=== PATIENT | female | born 1960 | race Caucasian/White ===

== ENCOUNTER 2017-10-09 18:08 | Emergency (ER) | payer BC ==
--- NOTE | 2017-10-09 18:32 | EDM.PDOC ---
ED HPI GENERAL MEDICAL PROBLEM - General Chief Complaint: General Stated Complaint: R ankle pain Time Seen by Provider: 10/09/17 18:25 Source of Information: Reports: Patient, Family (), Old Records ([facility] chart/EMR) History Limitations: Reports: No Limitations - History of Present Illness INITIAL COMMENTS - FREE TEXT/NARRATIVE: The patient was brought to the emergency room via private automobile by her for evaluation of 8/10 right ankle pain which occurred secondary to slipping on the ice at her home at about 17:30 hours. She did have a distal right ankle sprain as a teenager but no other significant previous right ankle injury. No treatment or medications prior to arrival with patient having difficulty with weightbearing. She denies any history of head injury, neck/back pain, loss of consciousness, change in mental status, paresthesias, neurological deficits, or other complaints or injuries. The patient denies any chest pain/pressure, heart flutter, dizziness, orthostasis, orthopnea, diaphoresis, paresthesias, recent decreased exercise tolerance, or any other anginal-type symptoms. No recent history of abdominal pain, heartburn, nausea, diarrhea, melena, gross hematochezia, or any food intolerance, including fatty foods, etc.. The patient also denies any recent fever, cough, wheezing, dyspnea , etc.. Onset: Today, Sudden Onset Date: 10/09/17 Onset Time: 17:30 Duration: Constant Location: Reports: Lower Extremity, Right. Denies: Head, Face, Neck, Chest, Abdomen, Back, Pelvis, Upper Extremity, Left, Upper Extremity, Right, Lower Extremity, Left, Radiates to Quality: Reports: Same as Previous Episode, Sharp, Throbbing Severity: Moderate Improves with: Reports: Rest Worsens with: Reports: Movement Context: Reports: Trauma (As above) Associated Symptoms: Denies: Confusion, Chest Pain, Cough, Diaphoresis, Fever/ Chills, Headaches, Loss of Appetite, Malaise, Nausea/Vomiting, Seizure, Shortness of Breath, Syncope, Weakness Treatments WARD SECRETARY: Reports: Other (see below) (None) Right Feet Pain Score (Numeric/FACES): 8 - Related Data Allergies Allergy/AdvReac Type Severity Reaction Status Date / Time tramadol Allergy Hives Verified 11/03/15 18:11 Home Meds: Home Meds Cholecalciferol (Vitamin D3) [Vitamin D3] 2,000 unit PO DAILY 10/22/13 [History] Melatonin 5 mg PO BEDTIME PRN 10/22/13 [History] Multivitamin [Multi-Vitamin Daily] 1 each PO DAILY 10/22/13 [History] Calcium Carbonate [Calcium] 600 mg PO DAILY 10/24/13 [History] Omeprazole [Prilosec] 40 mg PO DAILY 02/18/14 [History] Fish Oil/[place]-3 Fatty Acids [Fish Oil] 1 each PO DAILY 05/24/15 [History] Docusate Sodium/Sennosides [Senna Plus] 1 tab PO BID PRN 11/03/15 [History] Past Medical History HEENT History: Reports: Hard of Hearing, Impaired Vision, Other (See Below). Denies: Allergic Rhinitis, Cataract, Glaucoma, Macular Degeneration, Retinal Detachment Other HEENT History: She wears glasses. Chronic bilateral tinnitus with possible hearing loss. Nasal fracture as below Cardiovascular History: Reports: Arrhythmia, Cardiomyopathy, Heart Failure, Other (See Below). Denies: Afib, Aneurysm, Blood Clots/VTE/DVT, CAD, Heart Murmur, High Cholesterol, Hypertension, MA, PVD, Syncope Other Cardiovascular History: History of moderate bradycardia and borderline incomplete right bundle branch block. Mild cardiomegaly by chest x-ray with echocardiogram showing no significant cardiac enlargement, although the grade 1 diastolic dysfunction. Respiratory History: Reports: COPD, Intubation, Previous, Pulmonary Fibrosis, Sleep Apnea, Other (See Below). Denies: Asthma, Bronchitis, Recurrent, Intubation, Difficult, PE, Pneumonia, Recurrent, Pneumothorax, TB Other Respiratory History: Sleep apnea with current CPAP use. COPD and pulmonary fibrosis by chest x-ray with no current medical therapy required Gastrointestinal History: Reports: Cholelithiasis, Chronic Constipation, Gastritis, GERD, Helicobacter Pylori, Other (See Below). Denies: Celiac Disease , Chronic Diarrhea, Fecal Incontinence, GI Bleed, Hepatitis, Inflammatory Bowel Disease, Irritable Bowel Syndrome, Jaundice, Pancreatitis, PUD Other Gastrointestinal History: Positive H pylori titer on 02/18/14. Diverticulosis of the sigmoid colon. Hyperplastic rectal colonic polyp with additional adenomatous polyp with severe focal dysplasia at 12 cm on 09/13/07 with no history of recurrence despite multiple follow-up colonoscopy Genitourinary History: Reports: Urinary Incontinence, UTI, Recurrent. Denies: Acute Renal Failure, Chronic Renal Insuffiency, Renal Calculus, STD Other Genitourinary History: Urinary stress incontinence BUSINESS BANKER History: Reports: . Denies: Dysfunctional Uterine Bleeding, Endometriosis, Fibroids, Polycystic Ovaries, Spontaneous , Therapeutic : 3 Para: 3 LMP (Approximate): Other (See Below) Other OB/BYN History: Menopause in her early 40s. Otherwise, Full term without complications during pregnancies or deliveries. Benign fibrocystic breast disease. Musculoskeletal History: Reports: Arthritis, Back Pain, Chronic, Fracture, Neck Pain, Chronic, Osteoarthritis, Osteoporosis, Other (See Below). Denies: Amputation, Gout, RA, SLE Other Musculoskeletal History: Right wrist fracture 1994. Proximal right fibular fracture on 05/24/15. Left nasal fracture in December 2015 Neurological History: Reports: None. Denies: Cerebral Aneurysms, Concussion, CVA, Headaches, Chronic, Head Trauma, Migraines, MS, Parkinson's, Seizure, TIA Psychiatric History: Reports: Anxiety, Depression. Denies: Abuse, Victim of, ADD, ADHD, Addiction, Psych Hospitalization(s), PTSD, Suicide Attempt, Suicidal Ideation Endocrine/Metabolic History: Reports: Obesity/BMI 30+, Osteopenia, Osteoporosis , Other (See Below). Denies: Diabetes, Gestational, Diabetes, Type I, Diabetes , Type II, Diabetes Mellitus, Type 3c, Hypothyroidism, IDDM Other Endocrine/Metabolic History: Benign thyroid nodules with previous negative biopsies as below Hematologic History: Reports: None. Denies: Anemia, Blood Transfusion(s), Iron Deficiency Immunologic History: Reports: None. Denies: AIDS, HIV, SLE Oncologic (Cancer) History: Reports: Malignant Melanoma, Other (See Below). Denies: Basal Cell Carcinoma, Breast, Cervix, Colon, Hodgkin's Lymphoma, Leukemia, Metastatic, Non-Hodgkin's Lymphoma, Ovarian, Squamous Cell Carcinoma Other Oncologic History: Melanoma in the back region in 1994 with excision as below Dermatologic History: Reports: Melanoma. Denies: Eczema, Psoriasis - Infectious Disease History Infectious Disease History: Reports: Chicken Pox, Helicobacter Pylori, Measles, Mumps. Denies: C-Difficile, Meningitis, Mononucleosis, MRSA, Pertussis ( Whooping Cough), Rheumatic Fever, Rubella, Scarlet Fever, Shingles, TB, VRE - Past Surgical History Head Surgeries/Procedures: Reports: None HEENT Surgical History: Reports: Oral Surgery, Other (See Below). Denies: Adenoidectomy, Eye Surgery, Laser Surgery, LASIK, Myringotomy w Tube(s), Naso- Sinus Surgery, Tonsillectomy Other HEENT Surgeries/Procedures: Surprise teeth extraction 4 as a teenager Cardiovascular Surgical History: Reports: Varicose. Denies: Vascular Surgery Other Cardiovascular Surgeries/Procedures: Left leg varicose vein stripping in about 2000 Respiratory Surgical History: Reports: None. Denies: Lung Biopsies, Thoracentesis GI Surgical History: Reports: Cholecystectomy, Colonoscopy, EGD, Polypectomy, Other (See Below). Denies: Appendectomy, Hernia, Abdominal, Hernia, Inguinal, Hernia Repair/Other Other GI Surgeries/Procedures: Multiple polypectomies on 09/13/07 as above with last colonoscopy in about 2013. EGD and concomitant colonoscopy on 09/13/07. Laparoscopic cholecystectomy in about November 2008 Female Surgical History: Reports: Tubal Ligation, Other (See Below). Denies : Breast Biopsy, D&C, Hysterectomy, Salpingo-Oophorectomy Other Female Surgeries/Procedures: Tubal ligation in 1984 Endocrine Surgical History: Reports: Thyroid Biopsy, Other (See Below) Other Endocrine Surgeries/Procedures: Multiple previous fine-needle aspiration biopsies of the thyroid gland last in about 2011 Neurological Surgical History: Reports: None. Denies: C-Spine, Discectomy, Intracranial, Lumbar Spine, Spinal Fusion, Vertebroplasty Musculoskeletal Surgical History: Reports: Ganglion Cyst, Other (See Below). Denies: Arthroscopic Procedure, Carpal Tunnel, Joint Replacement, ORIF, Shoulder Surgery Other Musculoskeletal Surgeries/Procedures:: Ganglion cyst excision on 04/05/01 Oncologic Surgical History: Reports: Other (See Below) Other Oncologic Surgeries/Procedures: Wide excision of melanoma of the mid back in 1994 with subsequent repeat evaluation about 2 months thereafter. Excision of benign lymph node from the right axillary region Dermatological Surgical History: Reports: Plastic Surgical Reconstruction/Repair , Skin Biopsy, Other (See Below) Other Dermatological Surgeries/Procedures: For melanoma as above - Past Imaging History Past Imaging History: Reports: Cardiac Echo (11/01/16 with ejection fraction of 5055 percent and findings as above), CAT Scan (CT of the facial bones and sinuses on 11/03/15. CT of the right leg on 06/16/15 and 05/25/15. CT of the chest on 05/24/15. CT soft tissue evaluation of the neck on 07/28/09), Holter Monitor (In about 1999), Mammogram (Last mammogram on 11/23/16 with left-sided repeat mammogram on 11/28/16), MRI (Right shoulder on 12/19/16. Right elbow on 25/04), Sleep Study (Inpatient sleep studies on 04/25/17, 06/04/15, May 2014 , and 05/21/12), Ultrasound (Right knee ultrasound on 06/01/15. Last thyroid ultrasound on 10/29/12. Soft tissue ultrasound behind the left ear on 09/02/10. Right upper quadrant ultrasound on 08/29/08.) Social & Family History - Family History Cardiac: Reports: Arrhythmia, Bypass, CAD, Hypertension, MA, Other (See Below). Denies: Aneurysm, Blood Clots/VTE/DVT, High Cholesterol, Syncope Other Cardiac Family History: Father with fatal MA at age 75 with secondary CHF and previous MA and CABG in his early 70s. Hypertension in brother. Father with unknown type of arrhythmia Neurological: Reports: Alzheimers Disease, Dementia, Other (See Below) Other Neurological Family History: Mother with organic brain syndrome Psychiatric: Reports: Anxiety, Bipolar, Depression, Other (See Below) Other Psychiatric Family History: Sister with bipolar disorder Oncologic: Reports: Colon, Liver, Skin, Other (See Below) Other Oncologic Family History: Maternal uncle with fatal colon cancer in his 70s. Paternal aunt with fatal liver cancer possibly secondary to alcohol abuse in her 60s. Son with melanoma at age 35 - Tobacco Use Smoking Status *Q: Former Smoker Tobacco Use Within Last Twelve Months: No Years of Tobacco use: 20 Packs/Tins Daily: 1 (Smoked between ages 14 and 34) Used Tobacco, but Quit: Yes Smoking Cessation Information Provided To Patient: No Second Hand Smoke Exposure: No Second Hand Smoke Education Provided: No - Caffeine Use Caffeine Use: Reports: Soda (3 sodas per day). Denies: Coffee, Energy Drinks, Tea - Alcohol Use Alcohol Use History: Yes Days Per Week of Alcohol Use: 0 (No previous DWIs, problems with alcohol abuse, etc.) Number of Drinks Per Day: 2 (Usually wine coolers 1 time per month) Total Drinks Per Week: 0 Alcohol Use in Last Twelve Months: Yes Alcohol Use Frequency: Socially - Recreational Drug Use Recreational Drug Use: No Drug Use in Last 12 Months: No Recreational Drug Type: Denies: Amphetamines (Speed), Cocaine, Heroin, Inhalants (Glues, Solvents, Aerosols), LSD (Acid), Marijuana/Hashish, Methamphetamine, Morphine, Oxycodone Recreational Drug Last Use: 4 pops per day - Living Situation & Occupation Living situation: Reports: (Second marriage in 1999.), ( from her first in May 1994 with 3 children from that relationship) Occupation: Employed ([employer]) ED ROS GENERAL - Review of Systems Review Of Systems: ROS reveals no pertinent complaints other than HPI. ED EXAM, GENERAL - Physical Exam Exam: See Below Exam Limited By: No Limitations General Appearance: Alert, WD/WN, No Apparent Distress Head: Atraumatic, Normocephalic. No: Facial Swelling, Facial Tenderness, Sinus Tenderness Neck: Normal Inspection, Supple, Non-Tender, Full Range of Motion. No: Lymphadenopathy (L), Lymphadenopathy (R), Thyromegaly Respiratory/Chest: No Respiratory Distress, Lungs Clear, Normal Breath Sounds, No Accessory Muscle Use, Chest Non-Tender. No: Pleural Rub, Retractions Cardiovascular: Normal Peripheral Pulses, Regular Rate, Rhythm, No Edema, No Gallop, No JVD, No Murmur, No Rub. No: Gallop/S3, Gallop/S4, Friction Rub Peripheral Pulses: 2+: Radial (L), Radial (R), Dorsalis Pedis (L), Dorsalis Pedis (R) GI/Abdominal: Normal Bowel Sounds, Soft, Non-Tender, No Organomegaly, No Distention, No Abnormal Bruit, No Mass, Pelvis Stable, Other (Obese). No: Guarding (Female) Exam: Deferred Rectal (Female) Exam: Deferred Back Exam: Normal Inspection, Full Range of Motion. No: CVA Tenderness (L), CVA Tenderness (R), Muscle Spasm Extremities: No Pedal Edema, Normal Capillary Refill, Joint Swelling (Mild to moderate right ankle swelling and effusion mostly in the anterior and lateral regions with mild localized tenderness in these areas), Limited Range of Motion (Right ankle secondary to pain and discomfort), Other (No joint instability, crepitation, or deformity). No: Laura's Sign Neurological: Alert, Oriented, CN II-XII Intact, Normal Cognition, Normal Gait, Normal Reflexes (Negative Babinski's), No Motor/Sensory Deficits Psychiatric: Normal Affect, Normal Mood Skin Exam: Warm, Dry, Intact, Normal Color, No Rash. No: Diaphoretic, Wound/ Incision Lymphatic: No Adenopathy ED GENERAL MEDICAL PROCEDURES - Splinting Right Lower Extremity Pre-procedure NV status: Normal Post-procedure NV status: Normal Splint Material: Boot Orthotic, Other (Xavi wrap) Applied & Form Fitted By: Nurse Provider Post-Splint Application NV Check: NV Status Normal, Good Position Complications: No Course - Vital Signs Last Recorded V/S: Last Vital Signs Temp 36.2 C 10/09/17 18:10 Pulse 64 10/09/17 19:53 Resp 16 10/09/17 18:10 BP 164/85 H 10/09/17 19:53 Pulse Ox 100 10/09/17 18:10 Vital Signs - 24 hr 10/09/17 10/09/17 18:10 19:53 Temperature [ 36.2 C Temporal] Pulse, 87 64 Peripheral [ Pulse Oximetry] Respiratory 16 Rate Blood Pressure 173/98 H 164/85 H [Left Upper Arm ] O2 Sat by Pulse 100 Oximetry - Orders/Labs/Meds Orders: Active Orders 24 hr Category Date Time Status Ankle Min 3V Rt [CR] Stat Exams 10/09/17 18:32 Ordered Durable Medical Equipment for Discharge [DME for Oth 10/09/17 18:58 Ordered Discharge] [COMM] Routine Durable Medical Equipment for Discharge [DME for Oth 10/09/17 18:59 Ordered Discharge] [COMM] Routine Durable Medical Equipment for Discharge [DME for Oth 10/09/17 19:00 Ordered Discharge] [COMM] Routine Obtain Past Medical Record [OM.PC] Routine Oth 10/09/17 18:32 Active Labs: None Meds: None - Radiology Interpretation Free Text/Narrative:: X-rays of the right ankle, complete, shows evidence of a minimally displaced non -angulated right distal fibular fracture. Ankle Mortise appears intact Departure - Departure Time of Disposition: 20:00 Disposition: Home, Self-Care 01 Condition: Good Clinical Impression: Fracture of distal end of fibula, Elevated blood pressure reading, Osteoarthritis, COPD (chronic obstructive pulmonary disease), Peptic reflux disease - Discharge Information Instructions: Nondisplaced Fibular Ankle Fracture Treated With Immobilization, Adult Referrals: Zuleyma Bowden NP [Primary Care Provider] - Forms: ED Department Discharge, ED Return to Work/School Form Additional Instructions: 1. Follow-up with your regular provider in one week for reevaluation and repeat x-rays 2. Tylenol 650 mg by mouth every 4 hours and/or OTC ibuprofen 2-3 tabs by mouth every 6 hours with food as directed./needed. 3. Strict nonweightbearing until otherwise directed by your regular provider. Use Cam boot at all times with exception of bathing and ice packs with strict use of your crutches at all times as directed. 4. Xavi wrap, ice packs and leg elevation as discussed 5. Work excuse- See Form 6. Close follow-up of your blood pressures by your regular provider - Problem List & Annotations (1) Fracture of distal end of fibula SNOMED Code(s): 145429031 Code(s): S82.839A - OTH FRACTURE OF UPPER AND LOWER END OF UNSP FIBULA, INIT Status: Acute Priority: High Onset Date: 10/09/17 Annotation/Comment:: Non-displaced right distal fibular fracture as above. The nurse did place the patient in a Cam boot and Xavi wrap with activity restrictions, etc. extensively discussed as per discharge instructions. Work excuse and crutches provided. Close follow-up by her regular provider. Consideration of orthopedic referral, cast placement, etc. depending on her clinical course and exam at follow-up. Various therapeutic options were discussed with the patient, who does not wish to have an IM Toradol injection at this time. Ice packs therapy started in the emergency room. Qualifiers: Encounter type: initial encounter Fracture type: closed Fracture morphology: torus Laterality: right Qualified Code(s): S82.821A - Torus fracture of lower end of right fibula, initial encounter for closed fracture (2) Elevated blood pressure reading SNOMED Code(s): 90823369 Code(s): R03.0 - ELEVATED BLOOD-PRESSURE READING, W/O DIAGNOSIS OF HTN Status: Acute Priority: Medium Onset Date: 10/09/17 Annotation/Comment:: Blood pressure somewhat elevated today possibly secondary to her pain. No previous history of hypertension. Continue to observe closely by her regular providers as per discharge instructions. (3) COPD (chronic obstructive pulmonary disease) SNOMED Code(s): 96754125 Code(s): J44.9 - CHRONIC OBSTRUCTIVE PULMONARY DISEASE, UNSPECIFIED Status : Chronic Priority: Medium Annotation/Comment:: No recent significant cough , fever, bronchitic type symptoms, etc. Note no current medical therapy for her COPD and pulmonary fibrosis. Patient has been compliant with her CPAP for her sleep apnea, however. Qualifiers: COPD type: emphysema Emphysema type: panlobular Qualified Code(s): J43.1 - Panlobular emphysema (4) Osteoarthritis SNOMED Code(s): 124156176 Code(s): M19.90 - UNSPECIFIED OSTEOARTHRITIS, UNSPECIFIED SITE Status: Chronic Priority: Medium Annotation/Comment:: Her arthritis is otherwise stable. Qualifiers: Osteoarthritis location: multiple joints Osteoarthritis type: primary Qualified Code(s): M15.0 - Primary generalized (osteo)arthritis (5) Peptic reflux disease SNOMED Code(s): 51124656 Code(s): K21.9 - GASTRO-ESOPHAGEAL REFLUX DISEASE WITHOUT ESOPHAGITIS Status: Chronic Priority: Medium Annotation/Comment:: Stable by history and with current medical therapy (6) CHF, Congestive heart failure SNOMED Code(s): 62064049 Code(s): I50.9 - HEART FAILURE, UNSPECIFIED Status: Acute Priority: High Onset Date: 02/18/14 Annotation/Comment:: No chest pain or anginal type symptoms. Patient apparently has close follow-up of her heart disease by her fresco artist in [place] - Problem List Review Problem List Initiated/Reviewed/Updated: Yes - My Orders Last 24 Hours: My Active Orders 10/09/17 18:32 Ankle Min 3V Rt [CR] Stat Obtain Past Medical Record [OM.PC] Routine 10/09/17 18:58 Durable Medical Equipment for Discharge [DME for Discharge] [COMM] Routine 10/09/17 18:59 Durable Medical Equipment for Discharge [DME for Discharge] [COMM] Routine 10/09/17 19:00 Durable Medical Equipment for Discharge [DME for Discharge] [COMM] Routine - Assessment/Plan Last 24 Hours: My Active Orders 10/09/17 18:32 Ankle Min 3V Rt [CR] Stat Obtain Past Medical Record [OM.PC] Routine 10/09/17 18:58 Durable Medical Equipment for Discharge [DME for Discharge] [COMM] Routine 10/09/17 18:59 Durable Medical Equipment for Discharge [DME for Discharge] [COMM] Routine 10/09/17 19:00 Durable Medical Equipment for Discharge [DME for Discharge] [COMM] Routine Assessment:: As above Plan: As above. Extensive precautions were given to the patient and her , who are in agreement with the treatment plan. See Patient Instructions for further treatment and plan.
[2017-10-09 19:53] VITALS: BP 164/85
== END 2017-10-09 20:00 | disposition home or self-care (01) ==
LOC: LL.ED 18:08
DX: S82.831A Other fracture of upper and lower end of right fibula, initial encounter for closed fracture (principal); J44.9 Chronic obstructive pulmonary disease, unspecified; K21.9 Gastro-esophageal reflux disease without esophagitis; R03.0 Elevated blood-pressure reading, without diagnosis of hypertension; I50.9 Heart failure, unspecified; Z88.5 Allergy status to narcotic agent; Z79.899 Other long term (current) drug therapy; Z87.891 Personal history of nicotine dependence; W00.9XXA Unspecified fall due to ice and snow, initial encounter
CPT/HCPCS: 73610-RT; 99284

== ENCOUNTER 2019-10-17 09:57 | Day surgery (SDC) | payer BC ==
[~2019-10-17 09:57] MED LIST: Propofol 200 MG/20 ML SDV ONE
[2019-10-17] MEDS ORDERED: Sodium Chloride 0.9% 10 ML Syringe FLUSH PRN (10:15)
[2019-10-17] MEDS: Lactated Ringers 1,000 ML IV SCH (11:01)
--- NOTE | 2019-10-17 11:33 | PCM.PN ---
- General Info Date of Service: 10/17/19 - Review of Systems Systems Review Comment:: 59-year-old female here for colonoscopy. Her last colon exam was approximately 5 years ago. She denies any recent change in bowel pattern. She does have a known history of colon polyps. I have reviewed her recent history and physical and no significant changes are noted. I discussed the proposed colonoscopy with the patient. She agrees to proceed accepting risks. - Patient Data Vitals - Most Recent: Last Vital Signs Temp 97.2 F 10/17/19 10:52 Pulse 55 L 10/17/19 10:52 Resp 20 10/17/19 10:52 BP 156/86 H 10/17/19 10:52 Pulse Ox 100 10/17/19 10:52 Weight - Most Recent: 92.986 kg Med Orders - Current: Current Medications Lactated Ringer's (Ringers, Lactated) 1,000 mls @ 125 mls/hr IV ASDIRECTED NICKI Last Admin: 10/17/19 11:01 Dose: 125 mls/hr Sodium Chloride (Saline Flush) 10 ml FLUSH ASDIRECTED PRN PRN Reason: Keep Vein Open Discontinued Medications Propofol (Diprivan 20 Ml) Confirm Administered Dose 400 mg .ROUTE .STK-MED ONE Stop: 10/17/19 09:39 Sepsis Event Note - Focused Exam Vital Signs: Vital Signs Temp Pulse Resp BP Pulse Ox 10/17/19 10:52 97.2 F 55 L 20 156/86 H 100 Date Exam was Performed: 10/17/19 Time Exam was Performed: 11:32 - Problem List Review Problem List Initiated/Reviewed/Updated: Yes - My Orders Last 24 Hours: My Active Orders 10/17/19 10:15 Patient Status [ADT] Routine Peripheral IV Care [RC] . DIRECTED Verify Patient Consent Obtain [RC] ASDIRECTED Lactated Ringers [Ringers, Lactated] 1,000 ml IV ASDIRECTED Sodium Chloride 0.9% [Saline Flush] 10 ml FLUSH ASDIRECTED PRN Peripheral IV Insertion Adult [OM.PC] Routine - Assessment Assessment:: history of colon polyps - Plan Plan:: colonoscopy
[2019-10-17] MEDS ORDERED: Propofol 200 MG/20 ML SDV ONE (11:34)
--- NOTE | 2019-10-17 12:09 | PCM.OPNOTE ---
- General Post-Op/Procedure Note Date of Surgery/Procedure: 10/17/19 Operative Procedure(s): colonoscopy Findings: moderate to extensive sigmoid diverticulosi without acute inflammation Pre Op Diagnosis: history of colon polyps Post-Op Diagnosis: sigmoid diverticulosis Anesthesia Technique: MAC Primary Surgeon: John Silva Pathology: none EBL in mLs: 0 Complications: None Condition: Good
--- NOTE | 2019-10-17 12:42 | OR ---
Date of Procedure: 10/17/2019 PREOPERATIVE DIAGNOSIS: History of colon polyps. POSTOPERATIVE DIAGNOSIS: Sigmoid diverticulosis. OPERATIONS PERFORMED: Colonoscopy. INDICATIONS FOR SURGERY: This 59-year-old female has a known history of colon polyps. It has been 5 years since her last colonoscopy and she was referred for surveillance exam. FINDINGS: No polyps were seen on today's exam. The patient does have a [id number] amount of diverticulosis in the sigmoid region. There are no signs of acute inflammation or other complications in this diverticular disease. The remainder of the colon appears normal. DESCRIPTION OF PROCEDURE: The patient was taken to the operating room. She was given intravenous sedation, and with her in the left lateral decubitus position, digital rectal exam was performed showing no rectal masses. The Olympus colonoscope was inserted into the rectum. Retroflexed examination of the rectal canal was performed. The scope was carefully advanced under direct visualization through the entire length of the colon until the cecum was reached. Cecal acquisition was confirmed by noting the normal internal cecal anatomy including the appendiceal orifice and ileocecal valve. After examining the cecum, the scope was slowly withdrawn sequentially re-examining the colonic segments until the entire colon and rectum had been fully examined. The scope was removed and the patient was taken from the operating room in satisfactory condition. ESTIMATED BLOOD LOSS: 0. COMPLICATIONS: None. PROGNOSIS: Good. CHRISTINE Silva MD /[id number]
[2019-10-17 15:30] VITALS: BP 128/69; PULSE 50
== END 2019-10-17 13:05 | disposition home or self-care (01) ==
LOC: LL.SDS 09:57
PROVIDERS: ATTEND Surgery
DX: Z12.11 Encounter for screening for malignant neoplasm of colon (principal); K57.30 Diverticulosis of large intestine without perforation or abscess without bleeding; G47.33 Obstructive sleep apnea (adult) (pediatric); K21.9 Gastro-esophageal reflux disease without esophagitis; M81.0 Age-related osteoporosis without current pathological fracture; Z86.010 Personal history of colon polyps; Z98.890 Other specified postprocedural states; Z99.89 Dependence on other enabling machines and devices; Z90.49 Acquired absence of other specified parts of digestive tract; Z79.899 Other long term (current) drug therapy; Z88.1 Allergy status to other antibiotic agents; Z88.5 Allergy status to narcotic agent; Z79.82 Long term (current) use of aspirin; Z85.820 Personal history of malignant melanoma of skin
CPT/HCPCS: J2704; J7120

== ENCOUNTER 2021-05-26 10:35 | Emergency (ER) | payer BC ==
[2021-05-26] MEDS ORDERED: cloNIDine 0.1 MG Tab PO ONE (10:50)
[2021-05-26 11:18] LABS: ANION GAP 11.2 meq/L (7-15); CHLORIDE,CL 104 mmol/L (98-107); SODIUM,NA 141 mmol/L (136-145)
[2021-05-26 11:24] VITALS: PULSE 63
--- NOTE | 2021-05-26 12:27 | EDM.PDOC ---
ED HPI GENERAL MEDICAL PROBLEM - General Chief Complaint: General Stated Complaint: HIGH BP Time Seen by Provider: 05/26/21 10:50 Source of Information: Reports: Patient History Limitations: Reports: No Limitations - History of Present Illness INITIAL COMMENTS - FREE TEXT/NARRATIVE: Patient referred to ER from [facility] after it was noted that patient's BP was around 200/100. Patient had gone there and received flu shot. No previous formal diagnosis of HTN but per medical records here has been noted to run high previously. Patient reports being more stressed the last few days. Has mildly blurry vision when she tries to read things on the wall, also frontal headache since yesterday. No other reported changes. Headache Pain Score (Numeric/FACES): 5 - Related Data Allergies Allergy/AdvReac Type Severity Reaction Status Date / Time cefprozil Allergy Unknown Verified 05/26/21 10:40 tramadol Allergy Hives Verified 05/26/21 10:40 Home Meds: Home Meds Fish Oil/Myrtle-3 Fatty Acids [Fish Oil] 1 each PO BID 05/24/15 [History] Aspirin [Ecotrin EC] 81 mg PO DAILY 10/17/19 [History] Biotin 5,000 mcg PO DAILY 10/17/19 [History] Calcium Carb, Citrate/Vit D3 [Calcium + D3 ER Tablet] 1 each PO BID 10/17/19 [History] Cinnamon Bark [Cinnamon] 1,000 mg PO DAILY 10/17/19 [History] Cyanocobalamin (Vitamin B-12) [Vitamin B-12] 500 mcg PO DAILY 10/17/19 [History] Docusate Sodium [Stool Softener] 2 tab PO ASDIRECTED PRN 10/17/19 [History] Levothyroxine 25 mcg PO DAILY 10/17/19 [History] Melatonin 1 tab PO BEDTIME 10/17/19 [History] Multivitamin [One-Daily Multi-Vitamin] 1 tab PO DAILY 10/17/19 [History] Non-Formulary Medication [NF Drug] 3 tab PO DAILY 10/17/19 [History] Pantoprazole Sodium [Protonix] 20 mg PO DAILY 10/17/19 [History] Risedronate Sodium [Actonel] 35 mg PO Q7D 10/17/19 [History] Past Medical History HEENT History: Reports: Hard of Hearing, Impaired Vision Other HEENT History: She wears glasses. Chronic bilateral tinnitus with possible hearing loss. Nasal fracture as below Cardiovascular History: Reports: Hypertension, Other (See Below) Other Cardiovascular History: abnormal echocardiogram - follows [place] [facility]. Varicose Veins Respiratory History: Reports: Sleep Apnea Other Respiratory History: Sleep apnea with current CPAP use. COPD and pulmonary fibrosis by chest x-ray with no current medical therapy required Gastrointestinal History: Reports: GERD Other Gastrointestinal History: Positive H pylori titer on 02/18/14. Diverticulosis of the sigmoid colon. Hyperplastic rectal colonic polyp with additional adenomatous polyp with severe focal dysplasia at 12 cm on 09/13/07 with no history of recurrence despite multiple follow-up colonoscopy Genitourinary History: Reports: Urinary Incontinence, UTI, Recurrent Other Genitourinary History: Urinary stress incontinence CURVE SAW OPERATOR History: Reports: Other (See Below) Other CURVE SAW OPERATOR History: tubal ligation. Musculoskeletal History: Reports: Osteoporosis, Other (See Below) Other Musculoskeletal History: recurrent Left thumb mucoid cyst, Neurological History: Reports: None Psychiatric History: Reports: Anxiety, Depression Endocrine/Metabolic History: Reports: Other (See Below) Other Endocrine/Metabolic History: multi-nodular goiter. Hematologic History: Reports: B12 Deficiency Immunologic History: Reports: None Oncologic (Cancer) History: Reports: Malignant Melanoma Other Oncologic History: Melanoma in the back region in 1994 with excision as below Dermatologic History: Reports: Melanoma - Infectious Disease History Infectious Disease History: Reports: Chicken Pox, Helicobacter Pylori, Measles, Mumps. Denies: C-Difficile, Meningitis, Mononucleosis, MRSA, Pertussis (Whooping Cough), Rheumatic Fever, Rubella, Scarlet Fever, Shingles, TB, VRE - Past Surgical History GI Surgical History: Reports: Cholecystectomy Endocrine Surgical History: Reports: Thyroid Biopsy Dermatological Surgical History: Reports: Skin Biopsy, Other (See Below) - Past Imaging History Past Imaging History: Reports: Cardiac Echo (11/01/16 with ejection fraction of 5055 percent and findings as above), CAT Scan (CT of the facial bones and sinuses on 11/03/15. CT of the right leg on 06/16/15 and 05/25/15. CT of the chest on 05/24/15. CT soft tissue evaluation of the neck on 07/28/09), Holter Monitor (In about 1999), Mammogram (Last mammogram on 11/23/16 with left-sided repeat mammogram on 11/28/16), MRI (Right shoulder on 12/19/16. Right elbow on 08/25/08), Sleep Study (Inpatient sleep studies on 04/25/17, 06/04/15, May 2014, and 05/21/12), Ultrasound (Right knee ultrasound on 06/01/15. Last thyroid ultrasound on 10/29/12. Soft tissue ultrasound behind the left ear on 09/02/10. Right upper quadrant ultrasound on 08/29/08.) Social & Family History - Family History Cardiac: Reports: Arrhythmia, Bypass, CAD, Hypertension, SC, Other (See Below). Denies: Aneurysm, Blood Clots/VTE/DVT, High Cholesterol, Syncope Other Cardiac Family History: Father with fatal SC at age 75 with secondary CHF and previous SC and CABG in his early 70s. Hypertension in brother. Father with unknown type of arrhythmia Neurological: Reports: Alzheimers Disease, Dementia, Other (See Below) Other Neurological Family History: Mother with organic brain syndrome Psychiatric: Reports: Anxiety, Bipolar, Depression, Other (See Below) Other Psychiatric Family History: Sister with bipolar disorder Oncologic: Reports: Colon, Liver, Skin, Other (See Below) Other Oncologic Family History: Maternal uncle with fatal colon cancer in his 70s. Paternal aunt with fatal liver cancer possibly secondary to alcohol abuse in her 60s. Son with melanoma at age 35 - Tobacco Use Tobacco Use Status *Q: Unknown Ever Used Tobacco - Caffeine Use Caffeine Use: Reports: None - Living Situation & Occupation Living situation: Reports: (Second marriage in 1999.), ( from her first in May 1994 with 3 children from that relationship) Occupation: Employed ([employer]) ED ROS GENERAL - Review of Systems Review Of Systems: Comprehensive ROS is negative, except as noted in HPI. ED EXAM, GENERAL - Physical Exam Exam: See Below Exam Limited By: No Limitations General Appearance: Alert, No Apparent Distress, Obese Eye Exam: Bilateral Eye: EOMI, PERRL Ears: Normal External Exam, Normal Canal, Hearing Grossly Normal Nose: Normal Inspection Throat/Mouth: Normal Inspection Head: Atraumatic, Normocephalic Neck: Supple, Non-Tender Respiratory/Chest: No Respiratory Distress, Lungs Clear, Normal Breath Sounds, No Accessory Muscle Use Cardiovascular: Regular Rate, Rhythm, No Murmur GI/Abdominal: Soft, Non-Tender (Female) Exam: Deferred Rectal (Female) Exam: Deferred Back Exam: No: CVA Tenderness (L), CVA Tenderness (R), Muscle Spasm, Paraspinal Tenderness, Vertebral Tenderness Extremities: Normal Inspection, Normal Capillary Refill Neurological: Alert, Oriented, CN II-XII Intact, Normal Cognition, Normal Gait, No Motor/Sensory Deficits Psychiatric: Normal Affect, Normal Mood Skin Exam: Warm, Dry, Intact, Normal Color Course - Vital Signs Last Recorded V/S: Last Vital Signs Temp 36.4 C 05/26/21 10:36 Pulse 63 05/26/21 12:30 Resp 18 05/26/21 11:59 BP 126/60 05/26/21 12:30 Pulse Ox 98 05/26/21 11:20 - Orders/Labs/Meds Labs: Laboratory Tests 05/26/21 05/26/21 Range/Units 10:53 10:53 WBC 6.3 (4.0-10.2) K/uL RBC 4.51 (3.77-5.09) M/uL Hgb 12.9 (11.7-15.5) g/dL Hct 38.8 (34.0-46.0) % MCV 86.0 D (84.0-98.0) fL MCH 28.6 (28.2-33.3) pg MCHC 33.2 (31.7-36.0) g/dL RDW 12.5 (11.2-14.1) % Plt Count 298 (150-350) K/uL Neut % (Auto) 55.3 (45.0-80.0) % Lymph % (Auto) 32.6 (10.0-50.0) % Dubois % (Auto) 9.1 (2.0-14.0) % Eos % (Auto) 2.1 (0.0-5.0) % Baso % (Auto) 0.9 (0.0-2.0) % Neut # (Auto) 3.50 (1.40-7.00) K/uL Lymph # (Auto) 2.07 (0.50-3.50) K/uL Dubois # (Auto) 0.58 (0.00-1.00) K/uL Eos # (Auto) 0.13 (0.00-0.50) K/uL Baso # (Auto) 0.06 (0.00-0.20) K/uL Sodium 141 (136-145) mmol/L Potassium 3.9 (3.5-5.1) mmol/L Chloride 104 (98-107) mmol/L Carbon Dioxide 25.8 (21.0-32.0) mmol/L Anion Gap 11.2 (7-15) meq/L BUN 18 (7-18) mg/dL Creatinine 0.81 (0.51-1.17) mg/dL Est Cr Clr Drug Dosing 63.97 mL/min Estimated GFR (MDRD) > 60 mL/min Glucose 129 H (70-99) mg/dL Calcium 9.6 (8.5-10.1) mg/dL Magnesium 1.9 (1.8-2.4) mg/dL Total Bilirubin 0.5 (0.2-1.0) mg/dL AST 13 L (15-37) U/L ALT 29 (12-78) U/L Alkaline Phosphatase 87 (46-116) IU/L Total Protein 7.4 (6.4-8.2) g/dL Albumin 3.8 (3.4-5.0) g/dL Meds: Medications Discontinued Medications Generic Name Dose Route Start Last Admin Trade Name Freq PRN Reason Stop Dose Admin Clonidine HCl 0.1 mg 05/26/21 10:50 05/26/21 10:58 Clonidine 0.1 Mg Tab PO 05/26/21 10:51 0.1 mg ONETIME ONE Administration - Re-Assessments/Exams Free Text/Narrative Re-Assessment/Exam: 05/26/21 14:09 Patient received single Clonidine and observed one hour. CBC/Chem/Mag ordered. Labs overall unremarkable. BP significantly improved/normalized at time of discharge. Headache/vision improved. Discussed labs and approaches to BP control with patient. Stress reduction techniques/helpful diet changes reviewed. Patient does not want to start a medication today. Importance of good BP control stressed during patient encounter. Is willing to buy a BP monitor today and start keeping a QID BP diary/follow up with clinic next week. Departure - Departure Time of Disposition: 12:24 Disposition: Home, Self-Care 01 Condition: Good Clinical Impression: HTN (hypertension) Qualifiers: Hypertension type: primary hypertension Qualified Code(s): I10 - Essential (primary) hypertension - Discharge Information *PRESCRIPTION DRUG MONITORING PROGRAM REVIEWED*: Not Applicable *COPY OF PRESCRIPTION DRUG MONITORING REPORT IN PATIENT [place]: Not Applicable Instructions: How to Take Your Blood Pressure, [id number], Form - Blood Pressure Record Sheet Referrals: PCP,Unknown [Primary Care Provider] - Forms: ED Department Discharge Additional Instructions: customer services supervisor a blood pressure monitor! Start checking BP routinely first thing after you wake, again around noon, 4pm, and 9pm. Keep written record of trends. Make an appointment to follow up with your regular provider next week and bring the record to the appointment. They can better evaluate things at that time and get you started on blood pressure medication and arrange continued follow up . Return to ER if you have sudden worsening problems/symptomatic high blood pressure, readings over 190 systolic/100 diastolic. Sepsis Event Note (ED) - Evaluation Sepsis Screening Result: No Definite Risk - Focused Exam Vital Signs: Vital Signs Temp Pulse Resp BP BP Pulse Ox 05/26/21 12:30 63 126/60 05/26/21 12:12 130/72 05/26/21 11:59 18 147/73 H 05/26/21 11:20 63 20 134/82 98 05/26/21 11:05 62 20 141/84 H 98 05/26/21 10:58 149/113 H 05/26/21 10:52 63 20 149/113 H 98 05/26/21 10:36 36.4 C 70 20 179/90 H 100
[2021-05-26 13:09] VITALS: BP 126/60
== END 2021-05-26 12:35 | disposition home or self-care (01) ==
LOC: LL.ED 10:35
DX: I10 Essential (primary) hypertension (principal); J44.9 Chronic obstructive pulmonary disease, unspecified; K21.9 Gastro-esophageal reflux disease without esophagitis; Z79.82 Long term (current) use of aspirin; Z79.899 Other long term (current) drug therapy; Z88.5 Allergy status to narcotic agent; Z88.8 Allergy status to other drugs, medicaments and biological substances
CPT/HCPCS: 36415; 80053; 83735; 85025; 99283; A9270-GY

== ENCOUNTER 2022-02-05 11:25 | Emergency (ER) | payer BC ==
[2022-02-05] MEDS ORDERED: Diphtheria,Pertussis(Acell),Tetanus Vaccine 0.5 ML Syringe IM ONE (11:44)
[2022-02-05 20:58] VITALS: BP 142/76; PULSE 65
== END 2022-02-05 13:05 | disposition home or self-care (01) ==
LOC: SUPCPDRO 11:25 → LL.ED 11:25
DX: S61.231A Puncture wound without foreign body of left index finger without damage to nail, initial encounter (principal); S61.232A Puncture wound without foreign body of right middle finger without damage to nail, initial encounter; S60.812A Abrasion of left wrist, initial encounter; K21.9 Gastro-esophageal reflux disease without esophagitis; I10 Essential (primary) hypertension; J44.9 Chronic obstructive pulmonary disease, unspecified; Z88.5 Allergy status to narcotic agent; Z88.8 Allergy status to other drugs, medicaments and biological substances; Z79.82 Long term (current) use of aspirin; Z79.899 Other long term (current) drug therapy; Z23 Encounter for immunization; W26.8XXA Contact with other sharp object(s), not elsewhere classified, initial encounter
CPT/HCPCS: 90471; 90715; 99283-25

== ENCOUNTER 2023-03-16 07:51 | Day surgery (SDC) | payer OTHER, BC ==
[~2023-03-16 07:51] MED LIST changes: +Midazolam 1 MG/ML 2 ML SDV ONE
[2023-03-16] MEDS ORDERED: Lactated Ringers 1,000 ML IV SCH (08:00)
[2023-03-16] MEDS ORDERED: Sodium Chloride 0.9% 10 ML Syringe FLUSH PRN (08:00)
[2023-03-16] MEDS ORDERED: Lidocaine 0.5% 50 ML SDV ONE (09:12)
[2023-03-16] MEDS ORDERED: Lidocaine 2% 5 ML SDV INFILT ONE (09:32)
[2023-03-16 11:43] VITALS: BP 159/88; PULSE 54
== END 2023-03-16 10:35 | disposition home or self-care (01) ==
LOC: LL.SDS 07:51
PROVIDERS: ATTEND Surgery
DX: G56.01 Carpal tunnel syndrome, right upper limb (principal); Z79.890 Hormone replacement therapy; Z79.899 Other long term (current) drug therapy; Z79.82 Long term (current) use of aspirin; Z88.5 Allergy status to narcotic agent; Z88.8 Allergy status to other drugs, medicaments and biological substances
CPT/HCPCS: 01810; J2250; J2704; J3490; J7120

== ENCOUNTER 2024-10-10 07:41 | Day surgery (SDC) | payer MEDICARE ==
[2024-10-10] MEDS ORDERED: Sodium Chloride 0.9% 10 ML Syringe FLUSH PRN (08:00)
[2024-10-10] MEDS ORDERED: Propofol 200 MG/20 ML SDV ONE (08:15)
[2024-10-10] MEDS ORDERED: Midazolam 1 MG/ML 2 ML SDV ONE (08:15)
[2024-10-10] MEDS: Lactated Ringers 1,000 ML IV SCH (08:18)
[2024-10-10 09:53] VITALS: BP 104/57; PULSE 70
== END 2024-10-10 09:58 | disposition home or self-care (01) ==
LOC: LL.SDS 07:41
PROVIDERS: ATTEND Surgery
DX: Z12.11 Encounter for screening for malignant neoplasm of colon (principal); K57.30 Diverticulosis of large intestine without perforation or abscess without bleeding; K64.4 Residual hemorrhoidal skin tags; Z86.0100 Personal history of colon polyps, unspecified; E03.9 Hypothyroidism, unspecified; J44.9 Chronic obstructive pulmonary disease, unspecified; G47.33 Obstructive sleep apnea (adult) (pediatric); I10 Essential (primary) hypertension; Z79.890 Hormone replacement therapy; Z79.899 Other long term (current) drug therapy; G50.0 Trigeminal neuralgia
CPT/HCPCS: 00812; J2250; J2704; J7120